=== PATIENT | male | born 1990 | race African-American/Black ===

== ENCOUNTER 2020-12-20 09:31 | Emergency (ER) | payer SELFPAY ==
[2020-12-20 09:40] VITALS: BP 151/80; PULSE 74; TEMP 98.3; BMI 31.6
[2020-12-20] MEDS ORDERED: LIDOCAINE 5% TOPICAL PATCH TP ONE (09:54)
[2020-12-20] MEDS ORDERED: KETOROLAC TROMETHAMINE 30 MG/1 ML VIAL IM ONE (09:54)
[2020-12-20] MEDS ORDERED: diazePAM 5 MG TABLET PO ONE (10:21)
[2020-12-20] MEDS ORDERED: diazePAM 5 MG TABLET ONE (11:08)
[2020-12-20] MEDS ORDERED: KETOROLAC TROMETHAMINE 30 MG/1 ML VIAL ONE (11:08)
[2020-12-20] MEDS ORDERED: LIDOCAINE 5% TOPICAL PATCH ONE (11:08)
[2020-12-20] MEDS ORDERED: LIDOCAINE PATCH REMOVAL MC ONE (22:00)
== END 2020-12-20 11:24 | disposition home or self-care (01) ==
LOC: JER 09:31
PROC: 3E0233Z Introduction of Anti-inflammatory into Muscle, Percutaneous Approach (ICD-10-PCS; principal; 2020-12-20)
DX: M54.31 Sciatica, right side (principal)
CPT/HCPCS: 99284-25

== ENCOUNTER 2021-07-20 20:55 | Emergency (ER) | payer SELFPAY ==
[2021-07-20 21:07] VITALS: BP 142/62; PULSE 94; TEMP 98.2; BMI 32.3
[2021-07-20] MEDS ORDERED: LIDOCAINE HCL/EPINEPHRINE/PF 20 ML VIAL ONE (21:16)
== END 2021-07-20 22:11 | disposition home or self-care (01) ==
LOC: FER 20:55
PROC: 0HQ1XZZ Repair Face Skin, External Approach (ICD-10-PCS; principal; 2021-07-20)
DX: S01.81XA Laceration without foreign body of other part of head, initial encounter (principal); W22.8XXA Striking against or struck by other objects, initial encounter
CPT/HCPCS: 99282-25

== ENCOUNTER 2023-05-27 11:07 | Emergency (ER) | payer OTHER ==
[2023-05-27 11:29] VITALS: BP 120/76; PULSE 76; RESP 18; TEMP 98; BMI 31.6
== END 2023-05-27 12:11 | disposition home or self-care (01) ==
LOC: FER 11:07
PROC: 0HQHXZZ Repair Right Upper Leg Skin, External Approach (ICD-10-PCS; principal; 2023-05-27)
DX: S71.111A Laceration without foreign body, right thigh, initial encounter (principal); W26.8XXA Contact with other sharp object(s), not elsewhere classified, initial encounter
CPT/HCPCS: 99282-25